=== PATIENT | female | born 2005 | race Caucasian/White ===

== ENCOUNTER 2025-01-19 13:04 | Emergency (ER) | payer OTHER ==
[~2025-01-19] VITALS: Ht 167.6 cm; Wt 108.9 kg
[2025-01-19] MEDS ORDERED: IBUP-1955 PO (13:39)
[2025-01-19 14:16] VITALS: BP 125/75; TEMP 98.3; O2SAT 100
== END 2025-01-19 14:17 | disposition home or self-care (01) ==
LOC: ER 13:10
DX: S93.622A Sprain of tarsometatarsal ligament of left foot, initial encounter (principal); J45.909 Unspecified asthma, uncomplicated; X50.1XXA Overexertion from prolonged static or awkward postures, initial encounter; Y93.89 Activity, other specified; Y92.89 Other specified places as the place of occurrence of the external cause; Y99.8 Other external cause status
CPT/HCPCS: 73610-TC; 73630-TC